=== PATIENT | female | born 1980 | race Caucasian/White ===

== ENCOUNTER 2021-11-16 15:12 | Emergency (ER) | payer BC, MEDICAID ==
[~2021-11-16] VITALS: Ht 167.6 cm; Wt 88.0 kg
[2021-11-16] MEDS ORDERED: PANTOPRAZOLE SODIUM 40 MG/VIAL IV STA (16:24)
[2021-11-16] MEDS ORDERED: SODIUM CHLORIDE 0.9% 1,000 ML IV ONE (16:30)
[2021-11-16 17:08] LABS: BASOPHILS % 0.3 % (0.0-2.0); EOSINOPHILS % 0.8 % (0.0-5.0); HEMATOCRIT. 39.5 % (36.0-48.0); HEMOGLOBIN. 13.1 g/dL (12.0-16.0); LYMPHOCYTES % 13.9 % (20.0-50.0); MEAN CORPUSCULAR VOLUME 87.2 fL (81.0-99.0); MEAN PLATELET VOLUME 7.9 fl (7.4-10.4); MONOCYTES % 9.6 % (2.0-8.0); NEUTROPHILS % 75.4 % (40.0-76.0); PLATELET 319 x1000/uL (130-400); RED BLOOD CELL COUNT 4.53 mill/uL (4.2-5.4); RED CELL DISTRIBUTION WIDTH 15.1 % (11.6-14.6)
[2021-11-16 17:15] LABS: CHLORIDE 104 mEq/L (98-107)
[2021-11-16 17:54] LABS: PROTHROMBIN TIME 10.3 sec (9.6-11.0)
[2021-11-16 18:22] LABS: CLARITY URINE CLEAR (CLEAR); COLOR URINE YELLOW (YELLOW); KETONES URINE NEGATIVE (NEGATIVE); LEUKOCYTE ESTERASE URINE TRACE (NEGATIVE); NITRITE URINE POSITIVE (NEGATIVE); OCCULT BLOOD URINE NEGATIVE (NEGATIVE); PH URINE 5.5 (4.5-8.0); PROTEIN URINE NEGATIVE (NEGATIVE); SPECIFIC GRAVITY URINE 1.015 (1.005-1.030); UROBILINOGEN URINE 0.2 E.U./dL (0.2-1.0)
[2021-11-16] MEDS ORDERED: P20 MT (19:18)
[2021-11-16 20:03] VITALS: BP 132/68
== END 2021-11-16 20:06 | disposition home or self-care (01) ==
LOC: ER 15:12
DX: R19.7 Diarrhea, unspecified (principal); F12.10 Cannabis abuse, uncomplicated; Z20.822 Contact with and (suspected) exposure to COVID-19; Z98.890 Other specified postprocedural states; Z98.51 Tubal ligation status
CPT/HCPCS: 36415; 80053; 81003; 83605; 83690; 85025; 85610; 86850; 86900; 86901; 87426; 96361; 96374; 99283; C9113; C9803; J7030